=== PATIENT | female | born 1970 | race Caucasian/White ===

== ENCOUNTER → 2024-03-31 09:14 | Outpatient (REF) | payer OTHER, SELFPAY | LOC: HWRAD 09:14 | PROVIDERS: ATTENDING PHYSICIAN Nurse Practitioner Adult Health | DX: M79.672 Pain in left foot (principal) | CPT/HCPCS: 73630 ==

== ENCOUNTER → 2024-04-08 11:51 | Outpatient (REF) | payer OTHER, SELFPAY | LOC: HWWDC 11:51 | PROVIDERS: ATTENDING PHYSICIAN Nurse Practitioner Adult Health | DX: Z12.31 Encounter for screening mammogram for malignant neoplasm of breast (principal); Z78.0 Asymptomatic menopausal state | CPT/HCPCS: 77063; 77067; 77080 ==